=== PATIENT | male | born 1985 | race Caucasian/White ===

== ENCOUNTER 2020-04-27 14:41 | Emergency (ER) | payer OTHER ==
[~2020-04-27] VITALS: Ht 188 cm; Wt 72.6 kg
[2020-04-27 18:06] LABS: RDW-CV 12.1 % (10.5-14.5)
[2020-04-27 18:11] LABS: CALCIUM 9.1 mg/dL (8.5-10.1)
[2020-04-27 18:18] LABS: APTT 22.9 Seconds (25.0-31.3); INR 1.1; PROTIME 11.8 Seconds (9.20-11.50)
[2020-04-27 18:21] LABS: ALBUMIN 4.5 g/dL (3.4-5.0); MAGNESIUM 2.1 mg/dL (1.8-2.4); TOTAL BILIRUBIN 0.8 mg/dL (<0.1-1.0); TOTAL PROTEIN 8.3 g/dL (6.4-8.2)
[2020-04-27 18:25] LABS: ABSOLUTE EOSINOPHILS 0.3 thou/uL (0.0-0.7); ABSOLUTE LYMPHOCYTES 0.8 thou/uL (0.8-5.3); ABSOLUTE MONOCYTES 0.2 thou/uL (0.0-1.2); ABSOLUTE NEUTROPHILS 1.4 thou/uL (1.6-8.1); BASOPHILS 1.5 %; EOSINOPHILS 9.9 %; HEMATOCRIT 45.6 % (42.0-52.0); HEMOGLOBIN 15.7 gm/dL (14.0-18.0); LYMPHOCYTES 29.6 %; MCH 30.9 pg (26.0-34.0); MCHC 34.5 g/dL (28.0-37.0); MCV 89.7 fL (80.0-100.0); MONOCYTES 8.1 %; MPV 8.3 fl. (7.2-11.1); NUCLEATED RBCS 0 /100WBC; PLATELET COUNT* 171 thou/uL (150-400); POLYS 50.9 %; RBC 5.08 mil/uL (4.50-6.00); WBC 2.7 thou/uL (4.0-11.0)
[2020-04-27] MEDS ORDERED: CARAFATE 1 GM TA1 GM PO (21:33)
[2020-04-27] MEDS ORDERED: PEPCID40 MG PO (21:33)
[2020-04-27 21:45] VITALS: BP 121/70
--- NOTE | 2020-04-28 16:10 | EKG ---
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: [facility] : 1985 Requested By: Jose A Baker Order Number: [id number] MD: Tom Gonzales Measurements Intervals [place] Rate: 66 P: 78 MO: 137 QRS: 91 QRSD: 98 T: 33 QT: 384 QTc: 403 Interpretive Statements Sinus rhythm Minor IVCD right ST elev, probable normal early repol pattern No previous ECG available for comparison Electronically Signed On 04-28-2020 16:09:54 [employer] by Tom Gonzales [email or web address] <ELECTRONICALLY SIGNED> By: Tom Gonzales MD, [facility] 04/28/20 1609 1446 1446 Tom Gonzales MD, [facility] /EPI
== END 2020-04-27 21:45 | disposition home or self-care (01) ==
LOC: M.ERS 14:41
PROVIDERS: Emergency Medicine Emergency Medical Services
DX: K21.9 Gastro-esophageal reflux disease without esophagitis (principal); Z87.891 Personal history of nicotine dependence; Z88.8 Allergy status to other drugs, medicaments and biological substances